=== PATIENT | male | born 1945 | race African-American/Black ===

== ENCOUNTER 2016-11-04 07:22 | Emergency (ER) | payer OTHER ==
[~2016-11-04] VITALS: Wt 95.6 kg
[2016-11-04] MEDS ORDERED: SOD CHLORIDE 0.9% 1,000 ML IV STA (07:31)
[2016-11-04 07:59] LABS: ADD SCAN DIFF NO
[2016-11-04 08:02] LABS: BASOPHILS % 0.3 % (0.0-2.0); EOSINOPHILS % 0.6 % (0.0-7.0); HEMATOCRIT 37.3 % (42.0-52.0); HEMOGLOBIN 13.1 g/dl (14.0-18.0); LYMPHOCYTES # 1.3 10^3/ul (0.8-2.9); LYMPHOCYTES % 39.8 % (15.0-51.0); MEAN CORPUSCULAR HEMOGLOBIN 33.5 pg (29.0-33.0); MEAN CORPUSCULAR HGB CONC 35.1 g/dl (32.0-37.0); MEAN CORPUSCULAR VOLUME 95.4 fl (82.0-101.0); MEAN PLATELET VOLUME 11.5 fl (7.4-10.4); MONOCYTE # 0.4 10^3/ul (0.3-0.9); NEUTROPHIL # 1.6 10^3/ul (1.6-7.5); NEUTROPHILS % 48.3 % (39.0-77.0); PLATELET COUNT 112 10^3/UL (140-415); RED BLOOD COUNT 3.91 10^6/ul (4.70-6.10); RED CELL DISTRIBUTION WIDTH 12.1 % (11.5-14.5); WHITE BLOOD COUNT 3.3 10^3/ul (4.8-10.8)
--- NOTE | 2016-11-04 08:18 | RADRPT ---
PROCEDURE: XR Chest 1 View. CLINICAL INDICATION: On breath sounds, syncope. TECHNIQUE: AP view of the chest was obtained. COMPARISON: None. FINDINGS: The cardiomediastinal silhouette is within normal limits. Elevation right hemidiaphragm is identifie d. Minimal atelectasis is seen at the lung bases. No consolidations are identified. No pneumothora x is seen. Osseous structures are intact. IMPRESSION: Elevation right hemidiaphragm. Minimal atelectasis at the lung bases. RPTAT: AA .Magno Velasquez MD, MD Date Time Electronically viewed and signed by .Magno Velasquez MD, on 11/04/2016 08:18 .P/
[2016-11-04 08:20] LABS: CREATININE 0.98 mg/dl (0.61-1.24); POTASSIUM 4.4 mmol/L (3.5-5.1)
[2016-11-04 08:32] LABS: INR 1.13; PROTIME 14.5 Sec (12.2-14.2); PT RATIO 1.1; TROPONIN-I 0.063 ng/ml (0.00-0.12)
--- NOTE | 2016-11-04 09:14 | RADRPT ---
PROCEDURE: CT brain without contrast CLINICAL INDICATION: Dizziness, seizures TECHNIQUE: CT of the brain without contrast performed on a multidetector CT scanner, with multiplan ar reformats. One or more of the following dose reduction techniques were used: Automated exposure control, adjustment in mA and / or kV according to patient size, use of iterative reconstructive param hnique. CTDIvol = 44 mGy; DLP = 720 mGy-cm. COMPARISON: None available FINDINGS: No acute intracranial hemorrhage is identified. No extra-axial fluid collection is seen. There is no mass effect. No midline shift is identified. The ventricles and sulci are mildly enlarged compatible with generalized volume loss. Small chronic lacunar infarcts are visualized in the left lentiform nucleus and genu of the right in ternal capsule. There are moderate areas of hypodensity in the periventricular - deep white matter which are nonspecific but suggestive of chronic small vessel ischemic changes. Gonzalez-white different iation is preserved. Atherosclerotic calcifications of the intracranial internal carotid arteries are noted. Osseous structures are unremarkable. Mastoid air cells and imaged paranasal sinuses grossly clear. IMPRESSION: 1. No evidence of acute intracranial pathology. 2. Chronic left basal ganglia and right internal capsule lacunar infarcts. 3. Mild generalized volume loss, with mild to moderate chronic small vessel ischemic changes. RPTAT: EE .Alonzo Osborn MD, MD Date Time Electronically viewed and signed by .Alonzo Osbonr MD, MD on 11/04/2016 09:14 .O/
[2016-11-04 10:07] LABS: ADD UMIC YES; UR BILIRUBIN (Dip) NEGATIVE (NEGATIVE); UR BLOOD (Dip) NEGATIVE (NEGATIVE); UR CLARITY CLEAR (CLEAR); UR COLOR YELLOW (YELLOW); UR GLUCOSE (Dip) NEGATIVE (NEGATIVE); UR KETONES (Dip) NEGATIVE (NEGATIVE); UR LEUKOCYTE ESTERASE (Dip) NEGATIVE (NEGATIVE); UR NITRITE (Dip) NEGATIVE (NEGATIVE); UR TOTAL PROTEIN (Dip) TRACE (NEGATIVE); UR UROBILINOGEN (Dip) 4.0 E.U./dL (0.1-1.0)
[2016-11-04 10:18] LABS: UR SQUAMOUS EPITHELIAL CELL RARE /HPF (FEW)
--- NOTE | 2016-11-04 10:55 | ERD ---
ER Documentation Chief Complaint Date/Time DATE: 11/04/16 TIME: 10:55 Chief Complaint gen weakness and dizziness for the past few days. no neuro def. no trauma HPI 71-year-old male with a history of hypertension, CHF, SVT, psychiatric disorder , BPH, chronic hep C sent in from his assisted living facility for dizziness upon standing today.. The patient states he gets dizzy only when he stands up or tries to walk. He describes as lightheadedness, not room spinning dizziness. He denies any focal weakness or numbness. No headaches, fever, chills, nausea, vomiting, dysuria, hematochezia, or melena. He endorses normal p.o. intake. No recent illnesses. ROS All systems reviewed and are negative except as per history of present illness. PMhx/Soc Hx Neurological Disorder: Yes (Old CVA, syncope) Hx Cardiac Disorders: Yes (htn, high cholesterol , mi, syncopal episodes, SVT, CHF) Hx Psychiatric Problems: Yes (delusional paranoid. ) Hx Alcohol Use: No (denies) Hx Tobacco Use: Yes Smoking Status: Former smoker FmHx Family History: other (Father had hypertension) Physical Exam Vitals Vital Signs Date Time Temp Pulse Resp B/P Pulse Ox O2 Delivery O2 Flow Rate FiO2 11/04/16 12:33 83 17 180/90 100 Room Air 11/04/16 10:31 55 17 170/90 100 Room Air 11/04/16 08:51 62 20 154/85 98 Room Air 11/04/16 07:28 98.5 61 20 156/94 99 Physical Exam Const: Well-appearing, no apparent distress Head: Atraumatic Eyes: Normal Conjunctiva, PERRLA, EOMI, no nystagmus ENT: Normal External Ears, Nose and Mouth. Neck: Full range of motion..~ No meningismus. No JVD Resp: Clear to auscultation bilaterally Cardio: Bradycardic, regular rhythm, no murmurs. 2+ distal pulses Abd: Soft, non tender, non distended. Normal bowel sounds Skin: No petechiae or rashes Back: No midline or flank tenderness Ext: No cyanosis, or edema Neur: Awake and alert and oriented 3, strength and sensations intact in all 4 extremities, cranial nerves intact, steady gait Psych: Normal Mood and flat affect Result Diagram: 11/04/16 0745 11/04/16 0745 Results 24 hrs Laboratory Tests Test 11/04/16 07:45 11/04/16 09:50 White Blood Count 3.310^3/ul Red Blood Count 3.9110^6/ul Hemoglobin 13.1g/dl Hematocrit 37.3% Mean Corpuscular Volume 95.4fl Mean Corpuscular Hemoglobin 33.5pg Mean Corpuscular Hemoglobin Concent 35.1g/dl Red Cell Distribution Width 12.1% Platelet Count 07512^3/UL Mean Platelet Volume 11.5fl Neutrophils % 48.3% Lymphocytes % 39.8% Monocytes % 11.0% Eosinophils % 0.6% Basophils % 0.3% Nucleated Red Blood Cells % 0.0/100WBC Neutrophils # 1.610^3/ul Lymphocytes # 1.310^3/ul Monocytes # 0.410^3/ul Eosinophils # 0.010^3/ul Basophils # 0.010^3/ul Nucleated Red Blood Cells # 0.010^3/ul Prothrombin Time 14.5Sec Prothrombin Time Ratio 1.1 INR International Normalized Ratio 1.13 Activated Partial Thromboplast Time 36.0Sec Sodium Level 143mmol/L Potassium Level 4.4mmol/L Chloride Level 103mmol/L Carbon Dioxide Level 25mmol/L Anion Gap 19 Blood Urea Nitrogen 12mg/dl Creatinine 0.98mg/dl Glucose Level 118mg/dl Calcium Level 10.0mg/dl Troponin I 0.063ng/ml Urine Color YELLOW Urine Clarity CLEAR Urine pH 6.0 Urine Specific [place] 1.025 Urine Ketones NEGATIVE Urine Nitrite NEGATIVE Urine Bilirubin NEGATIVE Urine Urobilinogen 4.0 E.U./dL Urine Leukocyte Esterase NEGATIVE Urine Squamous Epithelial Cells RARE/HPF Urine Hemoglobin NEGATIVE Urine Glucose NEGATIVE% Urine Total Protein TRACE Current Medications Medications (Trade) Dose Ordered Sig/Jose Route PRN Reason Start Time Stop Time Status Last Admin Dose Admin Sodium Chloride (NS) 1,000 ml @ 1,000 mls/hr Q1H STAT IV 11/04/16 07:31 11/04/16 08:30 DC 11/04/16 07:44 Procedures/MDM EKG: Rate/Rhythm: Sinus bradycardia at 57 QRS, ST, T-waves: LVH with repolarization abnormality Impression: No evidence of ischemia or arrhythmia Chest x-ray shows no significant abnormality CT head shows no acute abnormalities Labs CBC: Mild leukopenia and thrombocytopenia, no significant anemia BMP: No evidence of electrolyte abnormality, renal failure, hypoglycemia Troponin within normal limits UA: no evidence of infection MDM Patient is presenting with orthostatic dizziness. His neuro exam is nonfocal. His vitals are stable. IV fluids were given. Labs did not show any significant abnormalities. After eating, the patient was ambulating with a steady gait in the ED. His symptoms have improved. I do not suspect acute stroke, ACS, aortic dissection, CHF exacerbation. Initial troponin was negative and EKG showed nonspecific changes, but no acute ischemia appear I believe the patient is stable for discharge back to his facility. Return precautions were discussed. Departure Diagnosis: Primary Impression: Orthostatic dizziness Condition: Stable EKSIXTO SALAZAR MD Nov 04, 2016 10:55
[2016-11-04 14:59] VITALS: BP 185/96; PULSE 55; RESP 17
== END 2016-11-04 15:13 | disposition home or self-care (01) ==
LOC: E/R 07:22
DX: R42 Dizziness and giddiness (principal); I10 Essential (primary) hypertension; I50.9 Heart failure, unspecified; Z87.891 Personal history of nicotine dependence
CPT/HCPCS: 36415; 70450; 71010; 80048; 81001; 84484; 85025; 85610; 85730; 93005; 99285; J7030

== ENCOUNTER 2016-11-18 13:53 | Emergency (ER) | payer OTHER ==
[~2016-11-18] VITALS: Ht 172.7 cm; Wt 90.0 kg
[2016-11-18] MEDS ORDERED: ONDANSETRON 4 MG INJ IV STA (13:59)
[2016-11-18] MEDS ORDERED: SOD CHLORIDE 0.9% 1,000 ML IV STA ×2 (13:59→18:21)
[2016-11-18 14:03] VITALS: Ht 172.7 cm; Wt 90.0 kg
[2016-11-18 14:20] LABS: BASOPHILS % 0.2 % (0.0-2.0); EOSINOPHILS % 0.4 % (0.0-7.0); HEMATOCRIT 38.3 % (42.0-52.0); HEMOGLOBIN 13.5 g/dl (14.0-18.0); LYMPHOCYTES # 1.3 10^3/ul (0.8-2.9); LYMPHOCYTES % 27.2 % (15.0-51.0); MEAN CORPUSCULAR HGB CONC 35.2 g/dl (32.0-37.0); MEAN CORPUSCULAR VOLUME 96.5 fl (82.0-101.0); MEAN PLATELET VOLUME 11.2 fl (7.4-10.4); MONOCYTE # 0.5 10^3/ul (0.3-0.9); MONOCYTES % 11.5 % (0.0-11.0); NEUTROPHIL # 2.8 10^3/ul (1.6-7.5); NEUTROPHILS % 60.5 % (39.0-77.0); PLATELET COUNT 112 10^3/UL (140-415); RED BLOOD COUNT 3.97 10^6/ul (4.70-6.10); RED CELL DISTRIBUTION WIDTH 12.2 % (11.5-14.5); WHITE BLOOD COUNT 4.6 10^3/ul (4.8-10.8)
[2016-11-18 14:33] LABS: INR 1.12; PROTIME 14.4 Sec (12.2-14.2); PT RATIO 1.1
[2016-11-18 14:40] LABS: PARTIAL THROMBOPLASTIN TIME 35.7 Sec (25.0-35.0)
[2016-11-18 14:49] LABS: ALBUMIN 4.8 g/dl (3.3-4.9); ALBUMIN/GLOBULIN RATIO 1.02; BILIRUBIN,INDIRECT 0.6 mg/dl (0-1.1); BILIRUBIN,TOTAL 0.6 mg/dl (0.2-1.3); CALCIUM 10.3 mg/dl (8.4-10.2); CREATININE 1.74 mg/dl (0.61-1.24); POTASSIUM 4.3 mmol/L (3.5-5.1); TOTAL PROTEIN 9.5 g/dl (6.1-8.1)
[2016-11-18 15:01] LABS: TROPONIN-I 0.045 ng/ml (0.00-0.12)
--- NOTE | 2016-11-18 15:05 | RADRPT ---
PROCEDURE: XR Chest. CLINICAL INDICATION: Chest pain TECHNIQUE: AP view of the chest was performed. COMPARISON: November 04, 2016 FINDINGS: The cardiomediastinal silhouette is within normal limits. The lungs are clear. No signs of pleural f luid or pneumothorax are seen. The osseous structures and soft tissues are unremarkable. IMPRESSION: No evidence for active cardiopulmonary disease. No interval change. RPTAT: QQ .Geeta Griffin MD, MD Date Time Electronically viewed and signed by .Geeta Griffin MD, on 11/18/2016 15:04 .F/
[2016-11-18] MEDS ORDERED: METO25TA7 PO (15:23)
[2016-11-18] MEDS ORDERED: SENN-36 PO (15:23)
[2016-11-18] MEDS ORDERED: TRAZ50TA18 PO (15:23)
[2016-11-18] MEDS ORDERED: AMLO-147 PO (15:23)
[2016-11-18] MEDS ORDERED: DOCU250C58 PO (15:23)
[2016-11-18] MEDS ORDERED: CHOL100062 PO (15:23)
[2016-11-18] MEDS ORDERED: ASPI81TA3 PO (15:23)
[2016-11-18] MEDS ORDERED: LISI20TA11 PO (15:23)
[2016-11-18] MEDS ORDERED: ATOR40TA68 PO (15:23)
[2016-11-18] MEDS ORDERED: LANO454C2 TP (15:23)
--- NOTE | 2016-11-18 16:44 | RADRPT ---
PROCEDURE: CT Brain without contrast. CLINICAL INDICATION: Trauma. Altered mental status. TECHNIQUE: A CT of the brain was performed on a multidetector CT scanner utilizing axial imaging f rom the skull base through the vertex without IV contrast. Multiplanar reformatted images were made . Images were reviewed on a PACS workstation. The CTDIvol is the 45 mGy and the DLP is 720 mGycm. COMPARISON: Head CT November 06, 2016 FINDINGS: There is moderate diffuse cerebral volume loss with sulcal and ventricular dilatation. No discrete extra-axial fluid collection or masses present. The ventricles are in the midline and of normal con tour and configuration. There are multiple region of diminished attenuation in the periventricular and subcortical white matter of both cerebral hemispheres. There is no associated mass effect. No i ntracranial hemorrhage is present. There is preservation of normal arndt-white discrimination. No skull fracture is visualized. IMPRESSION: Atrophy. White matter disease compatible with chronic small vessel ischemia. No intracranial hemor rhage or skull fracture. .Omar Haque MD, MD Date Time Electronically viewed and signed by .Omar Haque MD, on 11/18/2016 16:43 .A/
--- NOTE | 2016-11-18 17:12 | ERD ---
ER Documentation Chief Complaint Date/Time DATE: 11/18/16 TIME: 17:00 Chief Complaint BIB RA FOR EVAL OF ALOC HPI 71-year-old male who presents to the emergency department brought in by EMS from [facility] with a history of hypertension, CHF, SVT, psychiatric disorder, BPH, chronic hep C with complaint of changes in his mental status. Nursing staff indicated that yesterday the patient had a witnessed mechanical fall and hit his head. There is been no emesis on the patient does complain of a mild headache. He became more confused today which is why they sent him to the emergency department to be further evaluated and he also complained of left shoulder pain. He denies any chest pain or pressure that radiates to the neck arm back or jaw. He has no shortness of breath at rest or exertion. He has had no fevers or shaking or chills. There is been no hemoptysis hematemesis or melanotic stools. The patient states that the headache is most prominent over the frontal and posterior region with no changes in vision. ROS All systems reviewed and are negative except as per history of present illness. Medications Home Meds Reported Medications Trazodone Hcl* (Trazodone Hcl*) 50 Mg Tablet, 50 MG PO QHS, #30 TAB 11/18/16 Sennosides* (Senokot*) 8.6 Mg Tablet, 2 TAB PO DAILY, TAB 11/18/16 Metoprolol Succinate* (Toprol XL*) 25 Mg Tab.sr.24h, 12.5 MG PO DAILY, #30 TAB 11/18/16 Lisinopril* (Lisinopril*) 20 Mg Tablet, 20 MG PO DAILY, #30 TAB 11/18/16 Wool Alcoh/Min Oil/Brittney/Beckemeyer (Eucerin Creme) 454 Gm Cream.gm., 454 GM TP BID 11/18/16 Docusate Sodium* (Colace*) 250 Mg Capsule, 250 MG PO DAILY, #30 CAP 11/18/16 Cholecalciferol* (Vitamin D3*) 1,000 Unit Tablet, 1000 UNIT PO DAILY, TAB 11/18/16 Atorvastatin* (Atorvastatin*) 40 Mg Tablet, 40 MG PO QHS, #30 TAB 11/18/16 Aspirin* (Aspirin* Chew) 81 Mg Tab.chew, 81 MG PO DAILY, TAB.CHEW 11/18/16 Amlodipine Besylate* (Amlodipine Besylate*) 10 Mg Tablet, 10 MG PO DAILY, #30 TAB 11/18/16 Allergies Allergies: Coded Allergies: No Known Allergy (Unverified , 11/18/16) PMhx/Soc History of Surgery: Yes (biopsy of bleeding ulcers) Hx Neurological Disorder: Yes (Old CVA, syncope) Hx Cardiac Disorders: Yes (htn, high cholesterol , mi, syncopal episodes, SVT, CHF) Hx Psychiatric Problems: Yes (delusional paranoid. ) Hx Alcohol Use: No (denies) Hx Substance Use: No (denies) Hx Tobacco Use: No Smoking Status: Unknown if ever smoked Physical Exam Vitals Vital Signs Date Time Temp Pulse Resp B/P Pulse Ox O2 Delivery O2 Flow Rate FiO2 11/18/16 15:43 98.0 56 18 127/80 100 11/18/16 14:03 98.0 58 16 125/68 99 Physical Exam Constitutional:Well-developed. Well-nourished. HEENT:Normocephalic. Atraumatic.Pupils were equal round reactive to light. Dry mucous membranes.No tonsillar exudates. No nasoseptal hematoma. No hemotympanum. Neck: No nuchal rigidity. No lymphadenopathy. No posterior cervical spine tenderness or step-offs. Respiratory: Not using accessory muscles of respiration.Lungs were clear to auscultation bilaterally. No rhonchi. No rales. No wheezing. Cardiovascular: Regular rate regular rhythm.No murmurs. No rubs were appreciated.S1, S2 normal. Distal pulses are palpable 2+ bilaterally. GI: Abdomen was soft. Nontender. Non Distended. No pulsatile abdominal masses or bruits. No rebound. No guarding. Bowel sounds were present and normal. Muscle skeletal: Full range of motion of both the upper and lower extremities bilaterally.Normal muscle tone.No assymetrical calf tenderness or swelling. Normal lie to both humeral heads. Patient able to AB duct both upper extremity past 90 without any difficulty. Skin: No petechia, no purpura. No lesions on the palms or the soles of the feet. No maculopapular rash. NEURO: Patient was alert, awake, orientated to person place and time. He follows all verbal commands. The patient stated he felt too weak to ambulate therefore gait was not observed. No facial droop. No slurred speech. Result Diagram: 11/18/16 1400 11/18/16 1400 Results 24 hrs Laboratory Tests Test 11/18/16 14:00 White Blood Count 4.610^3/ul Red Blood Count 3.9710^6/ul Hemoglobin 13.5g/dl Hematocrit 38.3% Mean Corpuscular Volume 96.5fl Mean Corpuscular Hemoglobin 34.0pg Mean Corpuscular Hemoglobin Concent 35.2g/dl Red Cell Distribution Width 12.2% Platelet Count 13185^3/UL Mean Platelet Volume 11.2fl Neutrophils % 60.5% Lymphocytes % 27.2% Monocytes % 11.5% Eosinophils % 0.4% Basophils % 0.2% Nucleated Red Blood Cells % 0.0/100WBC Neutrophils # 2.810^3/ul Lymphocytes # 1.310^3/ul Monocytes # 0.510^3/ul Eosinophils # 0.010^3/ul Basophils # 0.010^3/ul Nucleated Red Blood Cells # 0.010^3/ul Prothrombin Time 14.4Sec Prothrombin Time Ratio 1.1 INR International Normalized Ratio 1.12 Activated Partial Thromboplast Time 35.7Sec Sodium Level 146mmol/L Potassium Level 4.3mmol/L Chloride Level 103mmol/L Carbon Dioxide Level 23mmol/L Anion Gap 24 Blood Urea Nitrogen 23mg/dl Creatinine 1.74mg/dl Glucose Level 114mg/dl Calcium Level 10.3mg/dl Total Bilirubin 0.6mg/dl Direct Bilirubin 0.00mg/dl Indirect Bilirubin 0.6mg/dl Aspartate Amino Transf (AST/SGOT) 28IU/L Alanine Aminotransferase (ALT/SGPT) 27IU/L Alkaline Phosphatase 71IU/L Troponin I 0.045ng/ml Total Protein 9.5g/dl Albumin 4.8g/dl Globulin 4.70g/dl Albumin/Globulin Ratio 1.02 Amylase Level 114U/L Lipase 61U/L Current Medications Medications (Trade) Dose Ordered Sig/Jose Route PRN Reason Start Time Stop Time Status Last Admin Dose Admin Sodium Chloride (NS) 1,000 ml @ 1,000 mls/hr Q1H STAT IV 11/18/16 13:59 11/18/16 14:58 DC 11/18/16 14:11 Ondansetron HCl (Zofran Inj) 4 mg ONCE STAT IV 11/18/16 13:59 11/18/16 14:02 DC 11/18/16 14:11 Procedures/MDM The patient presented to the emergency department with an acute and persistent change in their mental status. The differential diagnosis is diverse however reversible causes such as hypoglycemia, opiate overdose, thiamine deficiency were immediately considered. The patient was placed on a manager physical, continuous pulse oximetry and IV access was established. The patients airway was secure however hypoxic events such as anemia, shock, or severe pulmonary disease were all considered as etiologies in this patients presentation. Circulation assessed with good cap refill and did not require fluids or pressure support. Finger stick for rapid glucose determined to be normal. 12 Lead EKG tracing ordered and reviewed by myself showed: Sinus bradycardia 56 bpm and no arrhythmia. IN interval normal. QRS duration widened at 134 ms with left ventricular hypertrophy No ST segment elevation No ST segment depression. No changes consistent with acute ischemia. The patient had prerenal azotemia that could be a result of clinical dehydration. The patient received a liter bolus of 0.9 normal saline. Given that the patient had closed head injury I did obtain a CT scan the patient 's head there is no intracerebral hemorrhage mass-effect or midline shift. Radiographic imaging of the patient's left shoulder indicated the followin. Possible inferior glenoid fracture which would suggest a reduced shoulder subluxation or dislocation. 2. No humeral fracture is seen. Observation Note: Time: 4 hours Family Hx: No Hypertension Evaluation: Multiple exams showed improving symptoms and no evidence of encephalopathy or changes in the patient's mental status. There is no signs of a cerebrovascular accident. The patient stated he wanted to return back to his assisted living facility. I did feel the patient's symptoms could have been exacerbated for mild clinical dehydration. The patient was discharged home in fair condition. They were instructed to return to the emergency department at any time if there was any worsening of their condition. The patient stated they would follow up with their PCP in the next 24-48 hours to initiate a suitable medication regimen under the care of their PCP as well as to allow their PCP to monitor any drug reactions. The patient was discharged home with prescriptions after they gave informed consent to the new medication. They were also fully informed by myself on the adverse effects and adverse drug interactions in order to provide adequate safeguards to prevent possible adverse reactions to medications. Departure Diagnosis: Primary Impression: Concussion Encounter type: initial encounter Loss of consciousness presence/duration: without LOC Qualified Code: S06.0X0A - Concussion, without LOC, initial encounter Additional Impressions: Sprain of left shoulder Encounter type: initial encounter Shoulder sprain type: unspecified sprain Qualified Code: S43.402A - Sprain of left shoulder, unspecified shoulder sprain type, initial encounter Prerenal azotemia Condition: Fair SHAR WADE Nov 18, 2016 17:10
--- NOTE | 2016-11-18 17:49 | RADRPT ---
PROCEDURE: XR LEFT SHOULDER. CLINICAL INDICATION: The patient fell. Pain. TECHNIQUE: Two views of the left shoulder are available for review. COMPARISON: None available FINDINGS: The bones are osteopenic. There is irregular lucency within the inferior glenoid. Findings could r epresent a Bankart fracture - age indeterminate. There is no evidence for a reduced dislocation or subluxation on the images. No humeral fracture is seen. IMPRESSION: 1. Possible inferior glenoid fracture which would suggest a reduced shoulder subluxation or disloca tion. 2. No humeral fracture is seen. RPTAT: XX .Caden Whitley MD, MD Date Time Electronically viewed and signed by .Caden Whitley MD, on 11/18/2016 17:49 .T/
[2016-11-18 18:58] LABS: ADD UMIC YES; UR ASCORBIC ACID NEGATIVE (NEGATIVE); UR BILIRUBIN (Dip) NEGATIVE (NEGATIVE); UR BLOOD (Dip) NEGATIVE (NEGATIVE); UR CLARITY SLIGHTLY CLOUDY (CLEAR); UR COLOR AMBER (YELLOW); UR GLUCOSE (Dip) NEGATIVE (NEGATIVE); UR KETONES (Dip) NEGATIVE (NEGATIVE); UR LEUKOCYTE ESTERASE (Dip) NEGATIVE Leu/ul (NEGATIVE); UR NITRITE (Dip) NEGATIVE (NEGATIVE); UR RBC 15 /HPF (0-5); UR SPECIFIC GRAVITY (Dip) 1.026 (1.003-1.030); UR TOTAL PROTEIN (Dip) 1+ mg/dl (NEGATIVE); UR UROBILINOGEN (Dip) 2+ mg/dL (NEGATIVE)
[2016-11-18 20:47] VITALS: BP 154/77; PULSE 76; RESP 20; TEMP 98
== END 2016-11-18 20:47 | disposition home or self-care (01) ==
LOC: E/R 13:53
DX: S06.0X0A Concussion without loss of consciousness, initial encounter (principal); S43.402A Unspecified sprain of left shoulder joint, initial encounter; R39.2 Extrarenal uremia; I10 Essential (primary) hypertension; I50.9 Heart failure, unspecified; R40.2142 Coma scale, eyes open, spontaneous, at arrival to emergency department; R40.2242 Coma scale, best verbal response, confused conversation, at arrival to emergency department; R40.2362 Coma scale, best motor response, obeys commands, at arrival to emergency department; W18.09XA Striking against other object with subsequent fall, initial encounter; Y92.9 Unspecified place or not applicable; Z79.82 Long term (current) use of aspirin
CPT/HCPCS: 70450; 71010; 73030; 80053; 81001; 82150; 83690; 84484; 85025; 85610; 85730; 87086; J2405; J7030; 93005; 96374